=== PATIENT | female | born 1965 | race Caucasian/White ===

== ENCOUNTER 2021-02-26 10:48 | Emergency (ER) | payer OTHER, SELFPAY ==
[2021-02-26] VITALS (10 sets, daily range): BP systolic 101–114; BP diastolic 53–66; PULSE 45–70; RESP 13–24; TEMP 36.5; O2SAT 97–100
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
[2021-02-26] MEDS: SODIUM CHLORIDE 0.9% 1,000 ML 1000 ML IV (11:17)
[2021-02-26] MEDS: ONDANSETRON 4 MG/2 ML INJ (11:18)
[2021-02-26 11:25] LABS: Add Manual Diff / Slide Review NO; Basophils Absolute Auto 100 /uL (0-100); Eosinophils Absolute Auto 100 /uL (0-450); Eosinophils Percent Auto 1.5 % (2-4); Hematocrit 43.1 % (36-46); Hemoglobin 14.7 g/dL (12.0-16.0); Lymphocytes Absolute Auto 2400 /uL (1100-4500); Lymphocytes Percent Auto 36.9 % (25-40); Mean Corpuscular HGB Conc 34.1 % (30-36); Mean Corpuscular Hemoglobin 32.2 PG (26-34); Mean Corpuscular Volume 94.4 fL (80-100); Monocytes Absolute Auto 600 /uL (0-900); Monocytes Percent Auto 9.6 % (3-14); Neutrophils Absolute Auto 3300 /uL (1500-7000); Platelet Count 343 X10^3/uL (150-400); Red Blood Cell Count 4.56 X10^6/uL (4.0-5.2); Red Cell Distribution Width 12.9 % (11.6-14.8); White Blood Cell Count 6.4 X10^3/uL (4.5-11.0)
[2021-02-26 11:35] LABS: Alanine Aminotransferase 20 IU/L (<35); Albumin 4.4 g/dL (3.5-5.0); Albumin Globulin Ratio 1.7 (1.0-2.8); Alkaline Phosphatase 61 U/L (38-126); Aspartate Aminotransferase 33 IU/L (14-36); BUN Creatinine Ratio 17.3 (6-22); Bilirubin Total 0.4 mg/dL (0.2-1.3); Blood Urea Nitrogen 13 mg/dL (7-17); Calcium 9.6 mg/dL (8.4-10.2); Carbon Dioxide 24 mmol/L (22-32); Chloride 105 mmol/L (98-107); Creatine Kinase 130 U/L (30-135); Estimated Glomerular Filt Rate > 60.0 mL/min (>60); Ethanol (ETOH) < 10 mg/dL; Globulin 2.6 g/dL (1.7-4.1); Glucose 118 mg/dL (70-100); Lipase 198 U/L (23-300); Magnesium 2.2 mg/dL (1.6-2.3); Potassium 3.2 mmol/L (3.4-5.1); Sodium 138 mmol/L (137-145)
[2021-02-26 11:36] LABS: D Dimer < 200 ng/mL (<230)
[2021-02-26 11:46] LABS: Troponin I < 0.012 ng/mL (0.01-0.034)
[2021-02-26 11:51] LABS: Prolactin 32.5 ng/mL (3.0-18.6)
[2021-02-26 12:02] LABS: HEMOLYSIS 18 (0-50)
[2021-02-26 13:03] LABS: UR Morphine/Opiate cutoff 300 Negative (Negative); Ur Creatinine Normal (Normal); Ur Specific Gravity Normal (Normal); Urine Amphetamines Negative (Negative); Urine Barbiturates Negative (Negative); Urine Benzodiazepines Negative (Negative); Urine Cocaine Negative (Negative); Urine MDMA Negative (Negative); Urine Methadone Negative (Negative); Urine Methamphetamines Negative (Negative); Urine Oxycodone Negative (Negative); Urine Phencyclidine Negative (Negative); Urine Tetrahydrocannabinol Negative (Negative); Urine Tricyclic Antidepressant Negative (Negative); Urine pH Normal (Normal)
[2021-02-26] MEDS: POTASSIUM CHLORIDE 20 MEQ TAB 40 MEQ PO (13:07)
--- NOTE | 2021-02-26 13:18 | PC.NURSE ---
Pt reports 3/10 chest pain/pressure. RT doing repeat EKG and MD aware.
--- NOTE | 2021-02-26 13:57 | PC.NURSE ---
PT reports chest pain/pressure resolved. Ambulated to BR independently. Reports feeling better.
[2021-02-26 14:12] LABS: Troponin I < 0.012 ng/mL (0.01-0.034)
== END 2021-02-26 14:47 | disposition home or self-care (01) ==
PROVIDERS: Emergency Provider Emergency Medicine
DX: R56.9 Unspecified convulsions (principal); T50.B95A Adverse effect of other viral vaccines, initial encounter; R00.1 Bradycardia, unspecified; Z95.0 Presence of cardiac pacemaker
CPT/HCPCS: 36415; 70450; 71045; 80053; 80305; 80320; 81003; 82550; 82553; 83690; 83735; 84146; 84484; 85025; 85379; 93005; 93010; 96361; 96374; 99284; J2405